=== PATIENT | male | born 1990 | race Asian ===

== ENCOUNTER 2016-07-29 16:35 | Emergency (ER) | payer BC ==
[~2016-07-29] VITALS: Ht 167.6 cm; Wt 59.0 kg
[2016-07-29 16:38] VITALS: BP 135/81
[2016-07-29] MEDS ORDERED: RISP2 PO (16:42)
[2016-07-29] MEDS ORDERED: LITHTAB PO (16:42)
== END 2016-07-29 21:33 | disposition home or self-care (01) ==
LOC: ER 21:33
DX: J06.9 Acute upper respiratory infection, unspecified (principal); F31.9 Bipolar disorder, unspecified; Z79.899 Other long term (current) drug therapy; J01.90 Acute sinusitis, unspecified
CPT/HCPCS: 99283